=== PATIENT | female | born 1970 | race Caucasian/White ===

== ENCOUNTER 2019-12-13 14:31 | Emergency (ER) | payer SELFPAY ==
[~2019-12-13] VITALS: Ht 165.1 cm; Wt 78.9 kg
[2019-12-13 14:47] VITALS: BP 126/75
--- NOTE | 2019-12-13 14:47 | NUR ---
PT BIB SELF C/O WT LOSS, WEAKNESS SENT BY PSYCH MD FOR LOW TSH, PT IS AAOX4, NOT IN RESPIRATORY DISTRESS, HOOKED TO MONITOR, KEPT RESTED AND COMFORTABLE, WILL CONTINUE TO MONITOR.
--- NOTE | 2019-12-13 15:00 | NUR ---
SEEN AND EXAMINED BY VERONICA JONAS NP.
--- NOTE | 2019-12-13 15:10 | NUR ---
TECH AT BEDSIDE FOR US.
--- NOTE | 2019-12-13 15:19 | NUR ---
ER PHLEB AT BEDSIDE FOR BLOOD DRAW.
[2019-12-13 15:34] LABS: BASOPHILS % (AUTO) 0.5 % (0.0-2.0); EOSINOPHILS % (AUTO) 3.5 % (0.0-6.0); HEMATOCRIT 38 % (33-45); HEMOGLOBIN 12.8 g/dL (11.5-14.8); LYMPHOCYTES # (AUTO) 1.1 /CMM (0.8-4.8); LYMPHOCYTES % (AUTO) 19.9 % (20.0-44.0); MEAN CORPUSCULAR HGB CONC 33 g/dl (31.0-36.0); MEAN CORPUSCULAR VOLUME 96 fL (82-100); MONOCYTES # (AUTO) 0.3 /CMM (0.1-1.30); MONOCYTES % (AUTO) 6.4 % (2.0-12.0); NEUTROPHILS # (AUTO) 3.8 /CMM (1.8-8.9); NEUTROPHILS % (AUTO) 69.7 % (43.0-81.0); PLATELET COUNT (AUTO) 312 /CMM (150-450); WHITE BLOOD COUNT (AUTO) 5.4 K/uL (4.3-11.0)
--- NOTE | 2019-12-13 15:38 | NUR ---
Patient discharged to home in stable condition. Written and verbal after care instructions given. Patient verbalizes understanding of instruction.
[2019-12-13 15:42] LABS: CALCIUM, SERUM 8.6 mg/dL (8.5-10.1); CREATININE 0.9 mg/dL (0.6-1.3); POTASSIUM 3.6 mmol/L (3.5-5.1)
[2019-12-13 15:47] LABS: ALBUMIN 4.1 g/dL (3.4-5.0); BILIRUBIN,TOTAL 0.4 mg/dL (0.2-1.0); TOTAL PROTEIN, SERUM 7.5 g/dL (6.4-8.2)
[2019-12-13 16:23] LABS: THYROID STIMULATING HORMONE 0.467 uIU/mL (0.358-3.74)
== END 2019-12-13 15:39 | disposition home or self-care (01) ==
LOC: ER 14:31
DX: E04.1 Nontoxic single thyroid nodule (principal); Z88.5 Allergy status to narcotic agent
CPT/HCPCS: 36415; 76536-TC; 80053-TC; 84439-TC; 84443-TC; 84481; 85025-TC